=== PATIENT | male | born 1960 | race American Indian/Alaskan Native ===

== ENCOUNTER 2020-10-31 18:03 | Emergency (ER) | payer MEDICAID ==
--- NOTE | 2020-10-31 18:10 | Emergency Department Report ---
ED General Adult HPI - General Chief complaint: Weakness Stated complaint: My head hurts, my chest hurts, I am coughing, I have body aches. PUI?: Yes Time Seen by Provider: 10/31/20 18:09 Source: patient, EMS (Verbal report received from emergency medical services. EMS documentation not available at time of chart dictation ), RN notes reviewed Mode of arrival: Stretcher Limitations: No Limitations - History of Present Illness Initial comments: The patient was evaluated in the emergency department for symptoms described in the history of present illness. He/she was evaluated in the context of the global COVID-19 pandemic, which necessitated consideration that the patient might be at risk for infection with the virus that causes COVID-19. Institutional protocols and algorithms that pertain to the evaluation of patient s at risk for COVID-19 are in a state of rapid change based on information released by regulatory bodies including the CDC and federal and state organizations. These policies and algorithms were followed during the patient's care in the emergency department. Please note that these policies, procedures and recommendations changed on a rapid basis. During the entire history and physical examination, I had a complete personal protective equipment. The patient is a 59-year-old gentleman. He reports a past medical history of hypertension, diabetes, and sporadic tobacco use. He did not receive his COVID- 19 vaccination. He presented during the COVID-19 pandemic, delta phase variant. The patient presents to the ER with a complaint of approximately a day and a half of generalized headache, chest wall pain, coughing, body aches, malaise, loss of taste and smell. The patient denies personal/family history of DVT and pulmonary embolism. He has shortness of breath. He denies travel, surgery, immobilization. Headache is global. It is not sudden or thunderclap in nature. Is not maximal in intensity. There is no neck stiffness. Chest pain is central, bilateral. No endorsement of radiation, vomiting, diaphoresis. Positive coughing, shortness of breath, malaise and fatigue. No abdominal pain. Positive body aches. No urinary symptoms. Minimal relief with [id number] medications -: Gradual, days(s) Location: head, chest, back, left, right, upper extremity, lower extremity Quality: aching Consistency: constant Improves with: none Worsens with: movement - Related Data Previous Rx's Medication Instructions Recorded Last Taken Type Acetaminophen [Non-Aspirin Extra 500 mg PO Q6HR PRN #30 tablet 10/31/20 Unknown Rx Strength] Albuterol Sulfate [Proair 90 mcg IH Q4HR PRN #2 aer.pow.ba 10/31/20 Unknown Rx Respiclick] Amoxicillin [Trimox CAP] 1,000 mg PO Q8H #28 capsule 10/31/20 Unknown Rx Azithromycin [Zithromax TAB] 250 mg PO QDAY #4 tablet 10/31/20 Unknown Rx Benzonatate [Tessalon Perles] 100 mg PO Q8HR PRN #30 capsule 10/31/20 Unknown Rx Ibuprofen [Motrin] 600 mg PO Q8H PRN #30 tablet 10/31/20 Unknown Rx Metoclopramide [Reglan] 10 mg PO QID PRN #30 tablet 10/31/20 Unknown Rx Potassium Chloride [K-Dur] 20 meq PO QDAY #10 tablet 10/31/20 Unknown Rx Allergies Allergy/AdvReac Type Severity Reaction Status Date / Time Sulfa (Sulfonamide AdvReac Unknown Verified 10/31/20 18:28 Antibiotics) ED Review of Systems ROS: Stated complaint: CHEST PAIN Other details as noted in HPI Constitutional: fever, malaise, weakness Eyes: denies: eye discharge ENT: denies: epistaxis Respiratory: cough, shortness of breath Cardiovascular: chest pain Gastrointestinal: abdominal pain, diarrhea Genitourinary: denies: dysuria Musculoskeletal: back pain, arthralgia, myalgia Neurological: headache, weakness ED Past Medical Hx - Medications Home Medications: Home Medications Medication Instructions Recorded Confirmed Last Taken Type Acetaminophen [Non-Aspirin Extra 500 mg PO Q6HR PRN #30 tablet 10/31/20 Unknown Rx Strength] Albuterol Sulfate [Proair 90 mcg IH Q4HR PRN #2 aer.pow.ba 10/31/20 Unknown Rx Respiclick] Amoxicillin [Trimox CAP] 1,000 mg PO Q8H #28 capsule 10/31/20 Unknown Rx Azithromycin [Zithromax TAB] 250 mg PO QDAY #4 tablet 10/31/20 Unknown Rx Benzonatate [Tessalon Perles] 100 mg PO Q8HR PRN #30 capsule 10/31/20 Unknown Rx Ibuprofen [Motrin] 600 mg PO Q8H PRN #30 tablet 10/31/20 Unknown Rx Metoclopramide [Reglan] 10 mg PO QID PRN #30 tablet 10/31/20 Unknown Rx Potassium Chloride [K-Dur] 20 meq PO QDAY #10 tablet 10/31/20 Unknown Rx ED Physical Exam - General Limitations: No Limitations General appearance: alert, in no apparent distress - Head Head exam: Present: atraumatic, normocephalic - Eye Eye exam: Present: normal appearance, EOMI. Absent: nystagmus - ENT ENT exam: Present: normal exam, normal orophraynx, mucous membranes moist, normal external ear exam - Neck Neck exam: Present: normal inspection, full ROM. Absent: tenderness, meningismus - Respiratory Respiratory exam: Present: other (Pulmonary auscultation not performed secondary to lack of disposable stethoscope). Absent: respiratory distress, stridor - Cardiovascular Cardiovascular Exam: Present: regular rate, normal rhythm, other (Regular rate and rhythm noted on classroom monitor. Auscultation not performed secondary to lack of disposable stethoscope) - GI/Abdominal GI/Abdominal exam: Present: soft. Absent: distended, tenderness, guarding, rebound, rigid, pulsatile mass - Rectal Rectal exam: Present: deferred - Extremities Exam Extremities exam: Present: normal inspection, full ROM, other (2+ pulses noted in the bilateral upper and lower extremities. There is no palpable cord. negative Homans sign. Muscular compartments are soft. The pelvis is stable.). Absent: pedal edema, calf tenderness - Back Exam Back exam: Present: normal inspection, full ROM. Absent: tenderness, CVA tenderness (R), CVA tenderness (L), paraspinal tenderness, vertebral tenderness - Neurological Exam Neurological exam: Present: alert, oriented X3, other (No facial droop. Tongue midline. Extraocular movements intact bilaterally. Facial sensation intact to light touch in V1, V2, V3 distribution bilaterally. 5 and a 5 strength in 4 extremities. Sensation intact to light touch in 4 extremities.) - Psychiatric Psychiatric exam: Present: normal affect, normal mood - Skin Skin exam: Present: warm, dry, intact, normal color. Absent: rash ED Course Vital Signs 10/31/20 10/31/20 10/31/20 18:14 18:16 18:30 Temperature 101.9 F H Pulse Rate 99 H 91 H 87 Respiratory 33 H 17 27 H Rate Blood Pressure 132/74 128/66 Blood Pressure [Left] O2 Sat by Pulse 96 97 Oximetry O2 Sat by Pulse Oximetry [ Digit-Finger] 10/31/20 10/31/20 19:26 22:38 Temperature Pulse Rate 73 Respiratory 18 Rate Blood Pressure Blood Pressure 111/65 [Left] O2 Sat by Pulse 100 Oximetry O2 Sat by Pulse 99 Oximetry [ Digit-Finger] - Reevaluation(s) Reevaluation #1: 10/31/20 18:31 Differential diagnosis, including but not limited to: COVID-19, migraine headache, tension headache, cluster headache, GERD, gastritis, hiatal hernia, viral pneumonia, pulmonary embolism, coronary artery disease, pericarditis, myocarditis Assessment and plan: 59-year-old gentleman presenting with constellation of symptoms which is likely secondary to COVID-19, probable delta variant. Patient has not received his COVID-19 vaccination. He is febrile, but not currently tachypneic or hypoxic. He is saturating at 97 to 99% on room air. Patient at low risk for major adverse cardiac event as per heart score. Patient counseled that he is likely experiencing natural history of COVID-19. Please patient on isolation, ambulate patient on portable pulse oximeter for 5 minutes, to assess for desaturation. Check CBC with differential, troponin, CK, magnesium, comprehensive metabolic panel. Given left axis deviation, complaint of chest pain, high probability of COVID-19, send D-dimer, and if elevated, obtain CT scan of the chest to exclude/rule in pulmonary embolism. Patient counseled on natural history of COVID-19. Patient also encouraged to consider outpatient vaccination, once symptomatology resolves. Discussed this plan of care with the patient. He has verbalized understanding. He denies personal/family history of ischemic heart disease, and DVT and pulmonary embolism risk factors. 10/31/20 23:22 Troponin negative x1. Symptoms present for greater than 8 hours. Myocarditis, pericarditis, acute NC ruled out. D-dimer elevated, CT scan of the chest obtained. Right-sided pneumonia is suggested, no pulmonary embolism is identified. Patient low risk for adverse event as per curb 65 score. 0 points Low risk group: 0.6% 30-day mortality. Consider outpatient treatment. Potassium supplemented. Discussed findings with patient. He has articulated understanding. Will discharge with empiric amoxicillin, azithromycin, pain medication, nausea medication, potassium supplementation. Have rediscussed ventral findings and history of Covid. Patient endorses understanding. 10/31/20 23:23 - Pulse Oximetry Interpretation Digit-Finger Initial Pulse Oximetry Readin O2 Sat by Pulse Oximetry: 99 Actions Taken: none ED Medical Decision Making - Lab Data Result diagrams: 10/31/20 18:36 10/31/20 18:36 Vital Signs 10/31/20 18:16 Temperature 101.9 F H Pulse Rate 98 H Respiratory 18 Rate Blood Pressure 132/74 O2 Sat by Pulse 99 Oximetry Lab Results 10/31/20 10/31/20 10/31/20 Range/Units 18:36 18:36 18:36 WBC 4.5 (4.5-11.0) K/mm3 RBC 4.73 (3.65-5.03) M/mm3 Hgb 12.9 (11.8-15.2) gm/dl Hct 38.9 (35.5-45.6) % MCV 82 L (84-94) fl MCH 27 L (28-32) pg MCHC 33 (32-34) % RDW 15.3 H (13.2-15.2) % Plt Count 116 L (140-440) K/mm3 Lymph % (Auto) 4.0 L (13.4-35.0) % [place] % (Auto) 10.0 H (0.0-7.3) % Eos % (Auto) 0.0 (0.0-4.3) % Baso % (Auto) 0.4 (0.0-1.8) % Lymph # (Auto) 0.2 L (1.2-5.4) K/mm3 [place] # (Auto) 0.4 (0.0-0.8) K/mm3 Eos # (Auto) 0.0 (0.0-0.4) K/mm3 Baso # (Auto) 0.0 (0.0-0.1) K/mm3 Seg Neutrophils % 85.6 H (40.0-70.0) % Seg Neutrophils # 3.9 (1.8-7.7) K/mm3 PT 14.4 (12.2-14.9) Sec. INR 1.06 (0.87-1.13) D-Dimer 331.82 H (0-234) ng/mlDDU Sodium 132 L (137-145) mmol/L Potassium 3.3 L (3.6-5.0) mmol/L Chloride 91.3 L (98-107) mmol/L Carbon Dioxide 28 (22-30) mmol/L Anion Gap 16 mmol/L BUN 15 (9-20) mg/dL Creatinine 1.0 (0.8-1.3) mg/dL Estimated GFR > 60 ml/min BUN/Creatinine Ratio 15 % Glucose 102 H (75-100) mg/dL Calcium 8.6 (8.4-10.2) mg/dL Magnesium 1.70 (1.7-2.3) mg/dL Total Bilirubin 0.40 (0.1-1.2) mg/dL AST 33 (5-40) units/L ALT 31 (7-56) units/L Alkaline Phosphatase 51 (35-129) units/L Total Creatine Kinase 216 H (55-170) units/L Troponin T < 0.010 (0.00-0.029) ng/mL Total Protein 7.4 (6.3-8.2) g/dL Albumin 3.8 L (3.9-5) g/dL Albumin/Globulin Ratio 1.1 % - EKG Data -: EKG Interpreted by Ks EKG shows normal: sinus rhythm Rate: normal - EKG Data 10/31/20 18:31 EKG interpreted at 18: 12 Sinus rhythm, rate 95 bpm. Left axis deviation, left anterior fascicular block, normal P wave axis, PVC. QTC 440 ms. Abnormal EKG. Not a STEMI. No prior for comparison. - Radiology Data Radiology results: pending, report reviewed, image reviewed [facility] [address] [place] [address] XRay Report Signed Patient: CARMEN SAN MR#: [id number] : 1960 Acct:[id number] Age/Sex: 59 / M ADM Date: 10/31/20 Loc: ED Attending Dr: Ordering Physician: DIONE SAGE MD Date of Service: 10/31/20 Procedure(s): XR chest 1V ap Accession Number(s): [id number] cc: DIONE SAGE MD Fluoro Time In Minutes: CHEST 1 VIEW 10/31/2020 6:44 PM INDICATION / CLINICAL INFORMATION: acute cp, covid. COMPARISON: None available. FINDINGS: SUPPORT DEVICES: None. HEART / MEDIASTINUM: No significant abnormality. LUNGS / PLEURA: Mild increased interstitial prominence in bilateral lungs No pneumothorax. Signer Name: Gene Cohen MD Signed: 10/31/2020 7:15 PM Workstation Name: [id number] Transcribed By: CW Dictated By: STEVAN COHEN MD Electronically Authenticated By: STEVAN COHEN MD Signed Date/Time: 10/31/201914 DD/ 13 [facility] [address] [place] [address] Cat Scan Report Signed Patient: CARMEN SAN MR#: [id number] : 1960 Acct:[id number] Age/Sex: 59 / M ADM Date: 10/31/20 Loc: ED Attending Dr: Ordering Physician: DIONE SAGE MD Date of Service: 10/31/20 Procedure(s): CT angio chest Accession Number(s): [id number] cc: DIONE SAGE MD CTA CHEST WITH IV CONTRAST INDICATION: Acute chest pain, possible PE, possible pneumonia. COVID 19. TECHNIQUE: Axial CT images were obtained through the chest after injection of 100 cc Omnipaque 350 IV contrast. 3 plane MIP reconstructions were produced. All CT scans at this location are performed using CT dose reduction for ALARA by means of automated exposure control. COMPARISON: One view of the chest performed earlier today. FINDINGS: PULMONARY ARTERIES: No pulmonary emboli. AORTA AND ARTERIES: The aorta is normal in caliber and minimally calcified. No significant coronary atherosclerosis or other significant abnormalities. HEART: No significant abnormality. MEDIASTINUM: No mass or lympha denopathy. The trachea and main bronchi are patent and normal in caliber. LUNGS: There is dependent bilateral atelectasis with areas of consolidation seen posteriorly along the right upper lobe. No suspicious nodule or mass. No pneumothorax or pleural effusion. ADDITIONAL FINDINGS: None. UPPER ABDOMEN: No acute findings. BONES: No acute findings. There are mild degenerative changes along the spine. IMPRESSION: 1. No CT evidence for pulmonary embolism. 2. Right upper lobe pneumonia. Signer Name: Tyrone Montilla MD Signed: 10/31/2020 11:08 PM Workstation Name: [id number] Transcribed By: MN Dictated By: Tyrone Montilla MD Electronically Authenticated By: Tyrone Montilla MD Signed Date/Time: 10/31/202307 DD/ 03 Critical care attestation.: If time is entered above; I have spent that time in minutes in the direct care of this critically ill patient, excluding procedure time. ED Disposition Clinical Impression: Suspected COVID-19 virus infection, Acute chest pain, Hypokalemia, Headache Disposition: DC- TO HOME OR SELFCARE Is pt being admited?: No Does the pt Need Aspirin: No Condition: Good Instructions: Chest Pain (ED), COVID-19 Frequently Asked Questions, COVID-19 Additional Instructions: As we discussed, the patient most likely has novel coronavirus/COVID. the symptoms of COVID will typically persist 10 to 14 days. There is no cure at t his time for COVID. Please make certain to self isolate and self quarantine, follow-up with an outpatient primary care doctor within the next 3 to 5 days, wash hands with soap and water frequently, thoroughly and often, patient may take the prescribed medications as needed and directed. Advance diet and drink plenty of fluids as tolerated. Avoid interactions with the very elderly, very young, and those with chronic medical conditions. Return to the emergency room right away with new pain, worsening pain, migration of pain, projectile vomiting, change in mental status, confusion, inability to tolerate liquid feeds, new, worsened or different symptoms not present on the initial emergency room evaluation. Do not take metformin medication for the next 2 days, if patient takes medication. Advance diet as tolerated. Drink plenty of fluids. Purchase an [id number] portable pulse oximetry monitoring device; patient can find is easily on [employer], or at most outpatient pharmacies. Monitor home oxygen saturation on this device. If oxygen saturation drops below 90%, please return to the emergency room right away. Referrals: TC WARD MD [Staff Physician] - 3-5 Days [facility] [Provider Group] - 3-5 Days Forms: Work/School Release Form(ED) Heart Score - HEART Score History: Slightly suspicious EKG: Non-specific Age: 45-65 Risk factors: 1-2 risk factors (Patient states he does not smoke cigarettes currently) Troponin: < normal limit HEART Score: 3 - EKG Read Time Time EKG Completed: 18:12 EKG Read Time: 18:12 - Critical Actions Critical Actions: 0-3 pts:0.9-1.7%risk of adverse cardiac event.Candidate for discharge
[2020-10-31] MEDS ORDERED: LACTATED RINGERS 1,000 ML IV ONE (18:23)
[2020-10-31 18:54] LABS: Basophils % (Auto) 0.4 % (0.0-1.8); Hematocrit 38.9 % (35.5-45.6); Hemoglobin 12.9 gm/dl (11.8-15.2); Lymphocytes # (Auto) 0.2 K/mm3 (1.2-5.4); Mean Corpuscular HGB Conc 33 % (32-34); Mean Corpuscular Volume 82 fl (84-94); Monocytes # (Auto) 0.4 K/mm3 (0.0-0.8); Platelet Count 116 K/mm3 (140-440); Red Blood Count 4.73 M/mm3 (3.65-5.03); Red Cell Distribution Width 15.3 % (13.2-15.2)
[2020-10-31] MEDS ORDERED: ACETAMINOPHEN 500 MG TAB PO ONE (19:00)
[2020-10-31] MEDS ORDERED: diphenhydrAMINE 50 MG/ML VIAL IV ONE (19:00)
[2020-10-31] MEDS ORDERED: KETOROLAC 30 MG/1 ML INJ IV ONE (19:00)
[2020-10-31] MEDS ORDERED: METOCLOPRAMIDE 10 MG/2 ML INJ IV ONE (19:00)
[2020-10-31 19:04] LABS: INR 1.06 (0.87-1.13)
[2020-10-31 19:11] LABS: Alanine Aminotransferase 31 units/L (7-56); Albumin 3.8 g/dL (3.9-5); BUN/Creatinine Ratio 15; Blood Urea Nitrogen 15 mg/dL (9-20); Calcium 8.6 mg/dL (8.4-10.2); Hemolysis Index 7
--- NOTE | 2020-10-31 19:19 | XRay Report ---
CHEST 1 VIEW 10/31/2020 6:44 PM INDICATION / CLINICAL INFORMATION: acute cp, covid. COMPARISON: None available. FINDINGS: SUPPORT DEVICES: None. HEART / MEDIASTINUM: No significant abnormality. LUNGS / PLEURA: Mild increased interstitial prominence in bilateral lungs No pneumothorax. Signer Name: Gene Cohen MD Signed: 10/31/2020 7:15 PM Workstation Name: [id number]
[2020-10-31] MEDS ORDERED: POTASSIUM CHLORIDE ER 20 MEQ TAB PO ONE (19:23)
[2020-10-31 22:40] VITALS: BP 111/65
--- NOTE | 2020-10-31 23:13 | Cat Scan Report ---
CTA CHEST WITH IV CONTRAST INDICATION: Acute chest pain, possible PE, possible pneumonia. COVID 19. TECHNIQUE: Axial CT images were obtained through the chest after injection of 100 cc Omnipaque 350 IV contrast. 3 plane MIP reconstructions were produced. All CT scans at this location are performed using CT dose reduction for ALARA by means of automated exposure control. COMPARISON: One view of the chest performed earlier today. FINDINGS: PULMONARY ARTERIES: No pulmonary emboli. AORTA AND ARTERIES: The aorta is normal in caliber and minimally calcified. No significant coronary a therosclerosis or other significant abnormalities. HEART: No significant abnormality. MEDIASTINUM: No mass or lymphadenopathy. The trachea and main bronchi are patent and normal in calibe r. LUNGS: There is dependent bilateral atelectasis with areas of consolidation seen posteriorly along th e right upper lobe. No suspicious nodule or mass. No pneumothorax or pleural effusion. ADDITIONAL FINDINGS: None. UPPER ABDOMEN: No acute findings. BONES: No acute findings. There are mild degenerative changes along the spine. IMPRESSION: 1. No CT evidence for pulmonary embolism. 2. Right upper lobe pneumonia. Signer Name: Tyrone Montilla MD Signed: 10/31/2020 11:08 PM Workstation Name: [id number]
[2020-10-31] MEDS ORDERED: AMOXICILLIN 500 MG CAP PO ONE (23:18)
[2020-10-31] MEDS ORDERED: AZITHROMYCIN 250 MG TAB PO ONE (23:18)
--- NOTE | 2020-11-01 11:54 | Electrocardiograph Report ---
[facility] Test Date: 2020-10-31 Test Time: 18:12:29 Pat Name: CARMEN SAN Department: Room: Gender: M Senior Net Architect: LEONORA : 1960 Requested By: DIONE SAGE Order Number: [id number] Reading MD: Iris Marroquin Measurements Intervals Roberts Rate: 95 P: 52 OK: 120 QRS: -44 QRSD: 84 T: 56 QT: 349 QTc: 440 Interpretive Statements Sinus tachycardia Ventricular ectopy Left axis deviation No previous ECG available for comparison Electronically Signed On 11-01-2020 11:53:39 EDT by Iris Marroquin
== END 2020-11-01 00:20 | disposition home or self-care (01) ==
LOC: ED 18:03
DX: E87.6 Hypokalemia (principal); R51.9 Headache, unspecified; R07.89 Other chest pain; Z20.822 Contact with and (suspected) exposure to COVID-19; Z79.899 Other long term (current) drug therapy; Z88.2 Allergy status to sulfonamides
CPT/HCPCS: 36415; 71045; 71275; 80053; 82550; 83735; 84484; 85025; 85379; 85610; 93005; 96361; 96374; 96375; 99285; J1200; J1885; J2765; J7120; Q9967

== ENCOUNTER 2020-11-01 18:15 | Emergency (ER) | payer MEDICAID ==
[2020-11-01 18:30] VITALS: BP 128/82
== END 2020-11-01 19:55 | disposition left against medical advice (07) ==
LOC: ED 18:15
DX: R07.9 Chest pain, unspecified (principal); R10.9 Unspecified abdominal pain; Z53.21 Procedure and treatment not carried out due to patient leaving prior to being seen by health care provider